=== PATIENT | female | born 1960 | race Caucasian/White ===

== ENCOUNTER → 2019-09-05 10:04 | Outpatient (BNVA) | payer SELFPAY | PROVIDERS: Visit Provider Nurse Practitioner Family | DX: N39.0 Urinary tract infection, site not specified (principal); Z68.25 Body mass index [BMI] 25.0-25.9, adult; F17.290 Nicotine dependence, other tobacco product, uncomplicated; Z71.89 Other specified counseling | CPT/HCPCS: 81000 ==

== ENCOUNTER → 2020-01-27 11:09 | Outpatient (BNVA) | payer SELFPAY | PROVIDERS: Visit Provider Nurse Practitioner Women's Health | DX: Z01.419 Encounter for gynecological examination (general) (routine) without abnormal findings (principal) | CPT/HCPCS: 88175 ==

== ENCOUNTER 2020-03-10 07:49 | Outpatient (CLI) | payer SELFPAY ==
--- NOTE | 2020-03-10 08:00 | MM_ITS ---
WS: [id number] BILATERAL DIGITAL SCREENING MAMMOGRAPHY WITH CAD CLINICAL INFORMATION: SCREENING HISTORY: Screening mammogram. Sore left axilla COMPARISON: TECHNIQUE: Bilateral CC and MLO views. FINDINGS: Scattered fibroglandular densities bilaterally. No suspicious focal mass, asymmetry, calcifications, or architectural distortion. No evidence of malignancy. MM/[id number] IMPRESSION: BI-RADS: 1-Negative FOLLOW UP: 1 Year Follow-up Recommend return to annual screening mammography.
== END 2020-03-10 07:50 | disposition home or self-care (01) ==
LOC: RADSHAW 07:57
PROVIDERS: Visit Provider Nurse Practitioner Women's Health
DX: Z12.31 Encounter for screening mammogram for malignant neoplasm of breast (principal)
CPT/HCPCS: 77067

== ENCOUNTER 2020-12-12 09:32 | Outpatient (CLI) | payer SELFPAY ==
--- NOTE | 2020-12-12 09:42 | MR_ITS ---
WS: [id number] MRI HEAD WITH CONTRAST WITH ATTENTION TO THE INTERNAL AUDITORY CANALS TECHNIQUE: Sagittal T1, T2 axial, T2 axial flair, axial susceptibility weighted imaging, axial diffus ion weighted images, and coronal T2 images were obtained. Pre and post T1 axial and post T1 coronal i mages. ADC and FSPGR images. Post gadolinium images with attention to the internal auditory canals. A xial fiesta imaging. CLINICAL INFORMATION: BENIGN PAROXYSMAL VERTIGO, LEFT EAR COMPARISON: CT 8 14,018 FINDINGS: No evidence of restricted diffusion to suggest acute ischemia. Ventricular system and basal cisterns are patent. Mild small vessel changes. Mild to moderate parenchymal volume loss. Normal posterior fossa. Normal v ascular flow voids at the skull base. No extra axial fluid collections. No evidence of mass or mass e ffect. Mild mucosal thickening in the paranasal sinuses. Fluid within the maxillary sinuses and sphen oid sinuses compatible with sinusitis. Mastoid air cells well aerated. No hemosiderin on susceptibly weighted images. Proximal 7th and 8th cranial nerves are normal in appe arance. Normal trigeminal nerve root entry zones. No evidence of enhancing IAC or CP angle mass. Norm al optic chiasm and pituitary infundibulum. Normal cavernous sinuses and Meckel's cave. No abnormal i ntracranial enhancement. Normal visualized dural venous sinuses. MR/MR iac's wo/w con* [id number] IMPRESSION: 1. No evidence of restricted diffusion to suggest acute ischemia. 2. Mild small vessel changes with mild/moderate parenchymal volume loss. 3. No evidence of enhancing IAC or CP angle mass. Normal trigeminal nerve root entry zones. 4. Fluid in the paranasal sinuses consistent with sinusitis. Mastoid air cells well aerated. 5. No other significant findings.
[2020-12-12] MEDS: gadobenate dimeglumine 20 mL vial IV (10:34)
== END 2020-12-12 09:33 | disposition home or self-care (01) ==
PROVIDERS: Visit Provider Otolaryngology
DX: H81.12 Benign paroxysmal vertigo, left ear (principal); H90.3 Sensorineural hearing loss, bilateral; H92.01 Otalgia, right ear
CPT/HCPCS: 70553; A9577

== ENCOUNTER 2021-05-25 07:47 | Outpatient (CLI) | payer SELFPAY ==
--- NOTE | 2021-05-25 07:55 | MM_ITS ---
WS: [id number] BILATERAL SCREENING DIGITAL MAMMOGRAM WITH CAD HISTORY: SCREENING COMPARISON: 03/10/2020 and 11/05/2013 Bilateral CC and MLO views submitted. Computer aided detection analyzed. Breast composition: There are scattered areas of fibroglandular density. No suspicious masses, microc alcifications or architectural distortion. MM/[id number] IMPRESSION: BI-RADS: 1-Negative FOLLOW UP: 1 Year Follow-up
== END 2021-05-25 07:48 | disposition home or self-care (01) ==
LOC: RADSHAW 07:50
PROVIDERS: Visit Provider Nurse Practitioner Women's Health
DX: Z12.31 Encounter for screening mammogram for malignant neoplasm of breast (principal)
CPT/HCPCS: 77067

== ENCOUNTER 2021-09-02 14:27 | Emergency (ER) | payer SELFPAY ==
[2021-09-02 15:00] VITALS: BP 116/82; PULSE 74; RESP 18; TEMP 36.9; O2SAT 96; BMI 26.6
--- NOTE | 2021-09-02 15:10 | ED_ITS ---
HPI - General Adult General: Chief complaint: Ear Stated complaint: ringing in ears Time Seen by Provider: 09/02/21 14:57 History of Present Illness: Patient a 61-year-old female who presents the emergency room with complaints of ringing in the left ear now radiating towards the right. Patient says that she has hyper stream voice for last 2-month. 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 Patient tells me that taking Lexapro makes the ringing worse. Patient denies any nausea/vomiting, ear pain, focal neurological deficits. Patient has had intermittent vertigo prior but but has not had any recent episode. Denies any hearing loss Onset:2 monts ago Duration:2 months Location:home Severity:moderate Associated symptoms: Deny chest pain, dyspnea, nausea, rash, palpitations or vomiting Review of Systems Const: Denies: fever(s) or chills Eyes: Denies: change in vision ENMT: Reports: other (+L ear tinnitus); Denies: mouth pain Card: Denies: chest pain or palpitations Resp: Denies: dyspnea or non-productive cough GI: Denies: abdominal pain, nausea, vomiting or diarrhea : Denies: dysuria Musc: Denies: extremity pain Skin/Breast: Denies: rash or new lesions Neuro: Denies: weakness in extremities Psych: Reports: other (Normal mood) Neo/Lymph: Denies: easy bruising PFS ED PFSH: Medical History Asthma resolved since stopped smoking 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 No pertinent past medical history neghx: htn,dm,thyroid,dvt/pe Rheumatoid arthritis Surgical History History of surgical removal of skin lesion Sarcoma-- 2 removed on right leg Hx of dilation and curettage (~1994) Hx of tubal ligation (~2001) Family History Mother Hypertension Ovarian cancer dx age-- 50's Uterine cancer dx age-- 50's Father Stroke Grandmother Diabetes paternal Denies family history of Colon cancer Heart disease Hypercholesteremia Breast cancer Physical Exam Const: COMMON NORMALS: alert HENMT: COMMON NORMALS: atraumatic HEAD & SCALP: atraumatic MOUTH: moist mucous membranes not abnormal OTHER: TM intact bilaterally, no EAC erythema or edema Eye: COMMON NORMALS: EOMs intact bilaterally and conjunctivae normal CONJUNCTIVA: Yes conjunctivae normal Neck/C-Spine: COMMON NORMALS: full ROM and supple Resp: COMMON NORMALS: normal respiratory effort and clear to auscultation bilaterally AUSCULTATION: clear to auscultation bilaterally Cardio: COMMON NORMALS: regular rate RATE: regular rate GI: COMMON NORMALS: Soft to palpation and non-tender PALPATION: Yes Soft to palpation Extremity: COMMON NORMALS: full ROM Neuro: SENSORIUM/ORIENTATION: Yes alert MOTOR EXAM: No Abnormal motor strength present and Other motor observations present (no focal motor deficits) Psych: COMMON NORMALS: speech normal SPEECH: Yes normal speech MOOD & AFFECT: Yes euthymic mood Course Vital Signs: Vital signs: Vital Signs Temperature 98.5 F 09/02/21 15:00 Pulse Rate 74 09/02/21 15:00 Respiratory Rate 18 09/02/21 15:00 Blood Pressure 116/82 09/02/21 15:00 Pulse Oximetry 96 09/02/21 15:00 MDM - General Adult Medical Decision Making 61-year-old female presenting to the emergency room with tinnitus in the left ear. Exam is unremarkable with TM intact. Hemodynamically stable. Patient has worsening symptoms on Lexapro, encouraged patient to stop taking the lexapro Patient tells me that her appointment for tinnitus is in September. Patient would like to be seen sooner. I have given patient follow up with our piano case and bench assembler to be seen by our outpatient ENT for evaluation constant tinnitus. Patient aware of a call from our piano case and bench assembler to schedule for appointment(s) and verbalizes understanding of the importance of following up. Rx vistaril for anxiety and tinnitus Disposition: Discharge. Patient counseled regarding diagnostic impression, treatment plan. Patient given ED strict return precautions to return for continuation, worsening, or development of new symptoms. Instructed to f/u w/ PCP regarding symptoms today. Patient verbalized understanding. Discharge Plan Discharge Condition: Stable Prescriptions: No Action loratadine [Claritin] 10 mg tablet 10 mg PO DAILY 0RF acetaminophen [Tylenol] 325 mg capsule 325 mg PO QID PRN0RF Coding Level of Care Code ED Ceramic Capacitor Processor for Chg Fwd Exam Comprehensive
[2021-09-02 15:16] VITALS: BP 138/71; PULSE 89; RESP 22; O2SAT 96
[2021-09-02 15:36] VITALS: BP 139/81; PULSE 88; RESP 18; TEMP 36.6; O2SAT 96
--- NOTE | 2021-09-03 13:48 | DCPLANNER ---
Addendum entered by Jazzmine Ro 09/04/21 08:26: Patient called foster care case manager stating that she had a follow up appointment scheduled with Dr. Erickson on September 28, would like for foster care case manager to see if clinic could see patient any sooner. occupational safety and health manager called the office of Dr. Erickson, spoke with Cruz, patients appointment was rescheduled for September 102021 at 1:00. occupational safety and health manager called patient and gave her the appointment information. Original Note: occupational safety and health manager had message to schedule a follow up appointment for patient with ENT. occupational safety and health manager sent patients information to the front office staff at the ENT clinic. Patients information will be printed and reviewed. Clinic will call patient with appointment information.
== END 2021-09-02 15:37 | disposition home or self-care (01) ==
PROVIDERS: Emergency Provider Emergency Medicine
DX: H93.12 Tinnitus, left ear (principal); F41.9 Anxiety disorder, unspecified
CPT/HCPCS: 99282

== ENCOUNTER → 2021-09-05 10:08 | Outpatient (BNVA) | payer SELFPAY | PROVIDERS: Visit Provider Emergency Medicine | DX: N39.0 Urinary tract infection, site not specified (principal); J01.90 Acute sinusitis, unspecified; H93.19 Tinnitus, unspecified ear; J45.901 Unspecified asthma with (acute) exacerbation | CPT/HCPCS: 81000 ==

== ENCOUNTER 2021-10-19 10:26 | Outpatient (CLI) | payer SELFPAY ==
[2021-10-19 11:07] LABS: Basophils # 0.1 10^3/uL (0.0-0.1); Basophils % 0.8 %; Eosinophils # 0.1 10^3/uL (0.0-0.8); Hematocrit 47.6 % (37.0-47.0); Hemoglobin 15.3 g/dL (11.5-15.3); Lymphocytes # 2.2 10^3/uL (0.8-4.8); Mean Corpuscular HGB Conc 32.1 g/dL (30.0-36.0); Mean Corpuscular Hemoglobin 29.4 pg (28.0-34.0); Mean Corpuscular Volume 91.4 fl (81-99); Mean Platelet Volume 9.2 fL (7.4-10.4); Monocytes # 0.7 10^3/uL (0.2-0.9); Monocytes % 7.2 %; Neutrophils # 5.97 10^3/uL (1.8-7.7); Neutrophils % 66.6 %; Nucleated Red Blood Cells % 0 %; Platelet Count 276 10^3/cmm (130-400); Red Blood Count 5.21 10^6/uL (4.1-5.3); Red Cell Distribution Width 12.7 % (12.1-15.1)
[2021-10-19 11:44] LABS: Alanine Aminotransferase 27 U/L (0-33); Albumin Level 4.9 g/dL (3.5-5.2); Alkaline Phosphatase 100 IU/L (35-105); Amylase 44 U/L (28-100); Aspartate Amino Transferase 25 U/L (0-32); Blood Urea Nitrogen 13 mg/dL (6-20); Calcium 9.9 mg/dL (8.5-10.5); Carbon Dioxide 22 mmol/L (22-29); Chloride 102 mmol/L (98-107); Globulin 2.8 g/dL (1.3-4.6); Glomerular Filtration Rate 126.3 mL/min (90-130); Glucose 107 mg/dL (65-115); Lipase 27 U/L (13-60); Osmolality Calculated 287 mOsm/kg (285-295); Sodium 138 mmol/L (136-145); Thyroid Stimulating Hormone 1.94 uIU/mL (0.27-4.20); Total Bilirubin 0.5 mg/dL (0.15-1.2); Total Protein 7.7 g/dL (6.6-8.7)
[2021-10-19 11:49] LABS: Anion Gap 18.5 (5-19); Potassium 4.5 mmol/L (3.5-5.1)
== END 2021-10-19 10:27 | disposition home or self-care (01) ==
PROVIDERS: Visit Provider Family Medicine
DX: R10.11 Right upper quadrant pain (principal)
CPT/HCPCS: 36415; 80053; 82150; 83690; 84443; 85025

== ENCOUNTER 2021-10-23 08:59 | Outpatient (CLI) | payer SELFPAY ==
--- NOTE | 2021-10-23 09:08 | US_ITS ---
WS: [id number] RIGHT UPPER QUADRANT ULTRASOUND HISTORY: RUQ PAIN COMPARISON: None available. Liver: 14.7 cm in length. Normal size liver with moderately coarse echotexture. Surface is becoming s lightly irregular and nodular. No bile duct dilatation or mass. Portal Vein: Normal hepatopetal flow with monophasic waveform. Gallbladder: Normally distended gallbladder with no stones or wall thickening. CBD: 0.4 cm Pancreas: Normal size and echogenicity. Right kidney: 10.4 cm in length. Normal size and echogenicity. No hydronephrosis or mass. Aorta and IVC: Unremarkable abdominal aorta and IVC. No ascites. US/US abdomen limited [id number] IMPRESSION: 1. Normal gallbladder. 2. Normal size liver with moderate hepatic steatosis.
== END 2021-10-23 09:00 | disposition home or self-care (01) ==
PROVIDERS: Visit Provider Family Medicine
DX: R10.11 Right upper quadrant pain (principal)
CPT/HCPCS: 76705

== ENCOUNTER 2021-12-08 09:07 | Emergency (ER) | payer SELFPAY ==
[2021-12-08 09:21] VITALS: BP 113/67; PULSE 75; RESP 18; O2SAT 96; BMI 25.2
--- NOTE | 2021-12-08 09:29 | XRR_ITS ---
PROCEDURE INFORMATION: Exam: XR Chest Exam date and time: 12/08/2021 9:47 AM Age: 61 years old Clinical indication: Cough and dyspnea. TECHNIQUE: Imaging protocol: Radiologic exam of the chest. Views: 1 view. COMPARISON: CR XR chest 2V* [id number] 11/11/2017 1:44 PM FINDINGS: Lungs: No pulmonary consolidation. There is mild peribronchial wall thickening. Pleural spaces: No pleural effusion. No pneumothorax. Heart/Mediastinum: Cardiac silhouette is unchanged. No gross evidence of pneumomediastinum. Bones/joints: No gross fracture. XR/XR chest 1V portable [id number] IMPRESSION: There is mild peribronchial wall thickening; query viral infection/bronchitis, chronic bronchitis and/or asthma.
[2021-12-08 09:39] VITALS: BP 121/65; PULSE 61; RESP 18; TEMP 36.6; O2SAT 96
--- NOTE | 2021-12-08 09:47 | PC.NURSE ---
Patient refused solu-medrol states it makes her tinnitus get worse and she can't stand it.
--- NOTE | 2021-12-08 09:49 | ED_ITS ---
HPI - SOB/Dyspnea General: Chief Complaint: Shortness of Breath/Dyspnea Stated Complaint: SOB Time Seen by Provider: 12/08/21 09:27 Source: patient Mode of arrival: ambulatory History of Present Illness: HPI Narrative: 61-year-old female presents emergency room with 2 to 3 weeks of cough congestion wheezing. Patient is a smoker she has a history of asthma she is reporting continuous productive cough with green sputum varying from her baseline. Low- grade intermittent fever. She uses an albuterol inhaler at home she does not like to use nebulizer because she states it makes her dizzy. She denies any chest pain. She had some diarrhea early on which she attributed to her increase in Prozac. Symptoms ongoing for at least 2 weeks. MD elicited complaint: shortness of breath and cough Pertinent past history: asthma Onset (ago): week(s) (2) Timing: intermittent and progressively worsening Severity: moderate Exacerbating factors: nothing Relieving factors: nothing Known history of: asthma Associated symptoms: Deny abdominal pain, chest congestion, chest pain, cough, diaphoresis, dizziness, extremity pain, fever(s), hemoptysis, lightheadedness, myalgias, nausea, orthopnea, palpitations, paresthesias, polydipsia, polyuria, rash, sense of impending doom, syncope or vomiting Treatment prior to arrival: none Review of Systems Const: Denies: fever(s), chills, fatigue, malaise or diaphoresis Card: Denies: chest pain, palpitations, lightheadedness, syncope or orthopnea Resp: Reports: dyspnea, productive cough and wheezing; Denies: hemoptysis or chest congestion GI: Denies: abdominal pain, nausea or vomiting : Denies: flank pain, difficulty voiding, dysuria or urinary frequency Musc: Denies: extremity pain Neuro: Denies: dizziness Endo: Denies: polyuria or polydipsia PFS ED PFSH: Medical History (Updated 12/08/21 @ 09:56 by Rob Hart DO) Asthma resolved since stopped smoking 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 No pertinent past medical history neghx: htn,dm,thyroid,dvt/pe Rheumatoid arthritis Surgical History History of surgical removal of skin lesion Sarcoma-- 2 removed on right leg Hx of dilation and curettage (~1994) Hx of tubal ligation (~2001) Family History Mother Hypertension Ovarian cancer dx age-- 50's Uterine cancer dx age-- 50's Father Stroke Grandmother Diabetes paternal Denies family history of Colon cancer Heart disease Hypercholesteremia Breast cancer Social History Smoking and tobacco status: current every day smoker Physical Exam Const: COMMON NORMALS: no acute distress GENERAL APPEARANCE: cooperative and comfortable ORIENTATION/CONSCIOUSNESS: Yes awake, Yes oriented to person, Yes oriented to place and Yes oriented to time HENMT: COMMON NORMALS: normocephalic, atraumatic and hearing grossly normal bilaterally HEAD & SCALP: normocephalic and atraumatic Resp: AUSCULTATION: rhonchi and wheezes Cardio: COMMON NORMALS: regular rate, regular rhythm and No murmurs present (Cardio) RATE: regular rate RHYTHM: regular rhythm GI: COMMON NORMALS: Soft to palpation and No hepatosplenomegaly present AUSCULTATION: Yes normoactive bowel sounds PALPATION: Yes Soft to palpation, No Tenderness to palpation present (GI), No Guarding due to palpation present (GI) and Yes No hepatosplenomegaly present Extremity: COMMON NORMALS: normal to inspection, capillary refill normal, no clubbing, cyanosis or edema, no calf tenderness and no pedal edema Neuro: SENSORIUM/ORIENTATION: Yes oriented to person, Yes oriented to place and Yes oriented to time Skin: COMMON NORMALS: no rashes or lesions noted GENERAL SKIN EXAM: no rashes or lesions noted Course Vital Signs: Vital signs: Vital Signs Temperature 97.8 F 12/08/21 09:39 Pulse Rate 61 12/08/21 09:39 Respiratory Rate 18 12/08/21 09:39 Blood Pressure 121/65 12/08/21 09:39 Pulse Oximetry 96 12/08/21 09:39 Oxygen Delivery Me thod 12/08/21 09:39 MDM - SOB/Dyspnea Medical Decision Making Chest x-ray does not show anything acute. Based on her symptoms recommend Solu- Medrol and steroid taper she declined Solu-Medrol here did however also started on doxycycline use albuterol aggressively follow-up with her primary care doctor strongly encouraged her to stop smoking. Should probably also benefit from that from long-acting inhaled corticosteroid/LABA Medical Records I reviewed the patient's medical records. Lab Data I reviewed the patient's lab results. Discharge Plan Discharge Patient Disposition: Home Clinical Impression: Asthma with acute exacerbation in adult Condition: Stable Prescriptions: New doxycycline hyclate 100 mg capsule 100 mg PO BID 10 Days Qty: 20 0RF prednisone 20 mg tablet 20 mg PO TID Qty: 15 0RF Rx Instructions: 1 p.o. 3 times daily x3 days, 1 p.o. twice daily x2 days, 1 p.o. daily x2 days albuterol sulfate 90 mcg/actuation HFA aerosol inhaler 2 inh INHALATION Q4H PRN (Reason: shortness of breath or wheezing) Qty: 18 0RF Discontinued amoxicillin-pot clavulanate 875-125 mg tablet 1 tab PO BID 10 Days Qty: 20 0RF prednisone 20 mg tablet 60 mg PO DAILY Qty: 15 0RF No Action acetaminophen [Tylenol] 325 mg capsule 325 mg PO QID PRN clonazepam 0.5 mg tablet 0.5 mg PO Q8H PRN (Reason: anxiety) Qty: 20 0RF Discharge Orders: Discharge ED (Routine); Ordered 12/08/21 Ordered By: Rob Hart Discharge Diet: Usual diet Discharge Activity: Increase activity as tolerated Patient Instructions: How to Stop Smoking (ED), Opioid Safety, Quitting Smoking Activity Restrictions/Additional Instructions: Follow-up with your doctor within the next week. Use albuterol every 4 hours while awake either in the nebulizer form or with the inhaler. Strongly advised smoking cessation. Coding Level of Care Code ED Director Of Business Continuity for Master Fwd Exam Detailed
== END 2021-12-08 10:29 | disposition home or self-care (01) ==
PROVIDERS: Emergency Provider Family Medicine
DX: J45.901 Unspecified asthma with (acute) exacerbation (principal); F17.210 Nicotine dependence, cigarettes, uncomplicated
CPT/HCPCS: 71045; 99283

== ENCOUNTER 2022-05-01 07:45 | Outpatient (CLI) | payer SELFPAY ==
--- NOTE | 2022-05-01 07:53 | MM_ITS ---
WS: [id number] DIAGNOSTIC BILATERAL DIGITAL BREAST TOMOSYNTHESIS MAMMOGRAPHY WITH CAD LEFT breast ultrasound, limited HISTORY: N64.4 - Mastodynia, LEFT side. COMPARISON: 05/25/2021, 03/10/2020 TECHNIQUE: Bilateral craniocaudad, mediolateral oblique, and mediolateral views are submitted with to mosynthesis and SM. Spot compression LEFT MLO. Computer aided detection utilized. Breast composition: There are scattered areas of fibroglandular density. Normal fibroglandular patter n. No mass or calcification. No abnormality noted towards the LEFT axillary tail in the area of pain. Ultrasound to follow. LEFT breast ultrasound, limited. No abnormalities detected by ultrasound in the upper outer quadrant toward the axillary tail. This is the area indicated by patient which involves pain. There are benign lymph nodes. MM/[id number] IMPRESSION: BI-RADS: 2-Benign FOLLOW UP: 1 Year Follow-up No imaging abnormality in the LEFT breast in the area of pain.
--- NOTE | 2022-05-01 08:30 | US_ITS ---
WS: [id number] DIAGNOSTIC BILATERAL DIGITAL BREAST TOMOSYNTHESIS MAMMOGRAPHY WITH CAD LEFT breast ultrasound, limited HISTORY: N64.4 - Mastodynia, LEFT side. COMPARISON: 05/25/2021, 03/10/2020 TECHNIQUE: Bilateral craniocaudad, mediolateral oblique, and mediolateral views are submitted with to mosynthesis and SM. Spot compression LEFT MLO. Computer aided detection utilized. Breast composition: There are scattered areas of fibroglandular density. Normal fibroglandular patter n. No mass or calcification. No abnormality noted towards the LEFT axillary tail in the area of pain. Ultrasound to follow. LEFT breast ultrasound, limited. No abnormalities detected by ultrasound in the upper outer quadrant toward the axillary tail. This is the area indicated by patient which involves pain. There are benign lymph nodes. US/US breast LT limited* [id number] IMPRESSION: BI-RADS: 2-Benign FOLLOW UP: 1 Year Follow-up No imaging abnormality in the LEFT breast in the area of pain.
== END 2022-05-01 07:46 | disposition home or self-care (01) ==
LOC: RAD 07:48
PROVIDERS: Visit Provider Nurse Practitioner Women's Health
DX: N64.4 Mastodynia (principal)
CPT/HCPCS: 76642; 77062; G0279

== ENCOUNTER → 2022-07-19 10:00 | Outpatient (BNVA) | payer SELFPAY | PROVIDERS: Visit Provider Nurse Practitioner Women's Health | DX: Z12.4 Encounter for screening for malignant neoplasm of cervix (principal); N64.4 Mastodynia | CPT/HCPCS: 87624 ==

== ENCOUNTER → 2023-08-21 12:54 | Outpatient (BNVA) | payer SELFPAY | PROVIDERS: Visit Provider Nurse Practitioner Women's Health | DX: N93.9 Abnormal uterine and vaginal bleeding, unspecified (principal); D25.9 Leiomyoma of uterus, unspecified | CPT/HCPCS: 76830 ==

== ENCOUNTER → 2023-09-11 14:02 | Outpatient (BNVA) | payer SELFPAY | PROVIDERS: Visit Provider Nurse Practitioner Women's Health | DX: N95.0 Postmenopausal bleeding (principal) | CPT/HCPCS: 87624; 88305 ==

== ENCOUNTER 2024-08-11 13:08 | Outpatient (CLI) | payer SELFPAY ==
--- NOTE | 2024-08-11 13:30 | XR_ITS ---
WS: [id number] DEXA (DUAL ENERGY X-RAY ABSORPTIOMETRY) Bone mineral density was performed using a [employer] machine. HISTORY: Z78.0 - Asymptomatic menopausal state COMPARISON: None available. Lumbar spine BMD (L1-L4): 0.893 g/cm2 T score: -2.4 Z score: -1.6 Total hip BMD: Left: 0.888 g/cm2. T score: -1.0 Z score: -0.4 Right: 0.893 g/cm2. T score: -0.9 Z score: -0.3 10 year probability of a major osteoporotic fracture is 18.2%. XR/XR DEXA axial skeleton* [id number] IMPRESSION: OSTEOPENIA based upon the WHO classification for females.
--- NOTE | 2024-08-11 14:00 | MM_ITS ---
WS: [id number] BILATERAL 3D TOMOSYNTHESIS DIGITAL SCREENING MAMMOGRAPHY WITH CAD CLINICAL INFORMATION: Z12.31 - Encounter for screening mammogram for malignant ... HISTORY: Screening mammogram. No current complaints. COMPARISON: 2022 TECHNIQUE: Bilateral CC and MLO views. FINDINGS: Scattered fibroglandular densities bilaterally. No suspicious focal mass, asymmetry, calcifications, or architectural distortion. No evidence of malignancy. MM/MM scr tomosynthesis [id number] IMPRESSION: DENSITY: There are scattered areas of fibroglandular density. BI-RADS: 1 - Negative. FOLLOW UP: 1 Year Follow-up Recommend return to annual screening mammography.
== END 2024-08-11 13:09 | disposition home or self-care (01) ==
PROVIDERS: Visit Provider Nurse Practitioner Women's Health
DX: Z12.31 Encounter for screening mammogram for malignant neoplasm of breast (principal); Z78.0 Asymptomatic menopausal state; Z13.820 Encounter for screening for osteoporosis; M85.80 Other specified disorders of bone density and structure, unspecified site; R92.323 Mammographic fibroglandular density, bilateral breasts
CPT/HCPCS: 77063; 77067; 77080

== ENCOUNTER → 2025-01-06 10:45 | Outpatient (BNVA) | payer SELFPAY | PROVIDERS: PCP Family Medicine; Visit Provider Podiatrist Foot & Ankle Surgery | DX: L60.3 Nail dystrophy (principal) | CPT/HCPCS: 36415; 80053 ==

== ENCOUNTER → 2025-02-03 10:07 | Outpatient (BNVA) | payer SELFPAY | PROVIDERS: PCP Family Medicine; Visit Provider Podiatrist Foot & Ankle Surgery | DX: B35.1 Tinea unguium (principal) | CPT/HCPCS: 36415; 80053 ==

== ENCOUNTER → 2025-03-01 15:58 | Outpatient (BNVA) | payer SELFPAY | PROVIDERS: PCP Family Medicine; Visit Provider Emergency Medicine | DX: R09.89 Other specified symptoms and signs involving the circulatory and respiratory systems (principal) | CPT/HCPCS: 87400; 87426 ==

== ENCOUNTER → 2025-03-15 17:19 | Outpatient (BNVA) | payer SELFPAY | PROVIDERS: PCP Family Medicine | DX: R30.0 Dysuria (principal) | CPT/HCPCS: 81000; 87086 ==